=== PATIENT | male | born 1995 | race Caucasian/White ===

== ENCOUNTER 2019-07-04 08:45 | Emergency (ER) | payer BC, OTHER ==
[~2019-07-04] VITALS: Ht 177.8 cm; Wt 71.2 kg
[2019-07-04 08:53] VITALS: BP 119/58
--- NOTE | 2019-07-04 09:56 | NUR ---
assumed care of pt in rme. ct pending. given ice pack for head, provider notified of pain. +photophobia. a&ox4 gcs 15. as
[2019-07-04] MEDS ORDERED: KETOROLAC 30 MG/1 ML ONE (10:09)
[2019-07-04] MEDS ORDERED: ONDANSETRON ODT 4 MG ONE (10:09)
[2019-07-04] MEDS ORDERED: KETOROLAC 30 MG/1 ML IM ONE (10:30)
[2019-07-04] MEDS ORDERED: ONDANSETRON ODT 4 MG PO ONE (10:30)
== END 2019-07-04 11:24 | disposition home or self-care (01) ==
LOC: ED 11:03
DX: S06.0X1A Concussion with loss of consciousness of 30 minutes or less, initial encounter (principal); R11.0 Nausea; W18.39XA Other fall on same level, initial encounter; Y93.72 Activity, wrestling; Y92.098 Other place in other non-institutional residence as the place of occurrence of the external cause; Y99.8 Other external cause status
CPT/HCPCS: 70450; 96372; 99284; J1885; Q0162

== ENCOUNTER 2019-07-26 17:46 | Emergency (ER) | payer OTHER ==
[~2019-07-26] VITALS: Ht 177.8 cm; Wt 70.1 kg
[2019-07-26 18:38] LABS: RAPID INFLUENZA A Negative (Negative); RAPID INFLUENZA B Negative (Negative)
[2019-07-26 19:02] LABS: BASOPHILS # (AUTO) 0.04 x10^3/uL (0-0.1); BASOPHILS % (AUTO) 1 % (0-1); EOSINOPHILS # (AUTO) 0.12 x10^3/uL (0-0.4); EOSINOPHILS % (AUTO) 2 % (1-7); LYMPHOCYTES % (AUTO) 29 % (22-44); MD NO; MEAN CORPUSCULAR HEMOGLOBIN 30.7 pg (27.5-34.5); MEAN CORPUSCULAR HGB CONC 33.7 g/dL (33.2-36.2); MONOCYTES % (AUTO) 9 % (2-9); NEUTROPHILS # (AUTO) 4.12 x10^3/uL (1.8-6.8); NEUTROPHILS % (AUTO) 60 % (42-75); PLATELET COUNT 253 x10^3/uL (130-400); RED BLOOD COUNT 4.78 x10^6/uL (4.38-5.82); RED CELL DISTRIBUTION WIDTH 12.9 % (9.4-14.8)
[2019-07-26 19:12] LABS: ALBUMIN 4.2 g/dL (3.4-5.0); ANION GAP 6 mmol/L (5-15); CALCIUM 8.6 mg/dL (8.5-10.1); CHLORIDE 106 mmol/L (98-107); CREATININE 1.05 mg/dL (0.7-1.3)
--- NOTE | 2019-07-26 20:07 | NUR ---
PT. TO ROOM FROM LOBBY, AMBULATORY WITH STEADY GAIT AT THIS TIME.
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
[2019-07-26 20:26] VITALS: BP 122/77
--- NOTE | 2019-07-26 20:49 | NUR ---
AT BEDSIDE FOR EXAM.
--- NOTE | 2019-07-26 20:54 | NUR ---
REPORT RECEIVED FROM MARIPOSA TERRELL. ASSUMED CARE OF PT. PT RESTING ON GURNEY, NO DISTRESS NOTED, FRIEND AT BEDSIDE. AWAITING LABS AT THIS TIME. ALERT AND ORIENTED, SINUS DRE, NO ECTOPY
--- NOTE | 2019-07-26 20:56 | NUR ---
REPORT GIVEN TO MARIPOSA COATS. CARE TRANSFERRED AT THIS TIME.
--- NOTE | 2019-07-26 21:25 | NUR ---
PT GIVEN THE OPTION BY DR. GONZALEZ TO HAVE A CT SCAN, REFUSED TO HAVE ONE.
--- NOTE | 2019-07-26 21:29 | NUR ---
Patient/Caregiver given discharge instructions and they have confirmed that they understand the instructions. Patient ambulatory with steady gait.
== END 2019-07-26 22:00 | disposition home or self-care (01) ==
LOC: ED 21:45
DX: F07.81 Postconcussional syndrome (principal); R25.1 Tremor, unspecified; R51 Headache
CPT/HCPCS: 36415; 80048; 82040; 85025; 87400; 99283

== ENCOUNTER 2019-07-27 15:24 | Emergency (ER) | payer OTHER ==
[~2019-07-27] VITALS: Ht 177.8 cm; Wt 70.1 kg
[2019-07-27 15:31] VITALS: BP 113/66
--- NOTE | 2019-07-27 16:40 | NUR ---
CALLED BY RADIOLOGY, NO ANS
--- NOTE | 2019-07-27 17:54 | NUR ---
APPROXIMATELY 1700 - NO ANS 1754 - NO ANS X 3
== END 2019-07-27 17:56 | disposition left against medical advice (07) ==
LOC: ED 17:50
DX: S09.90XA Unspecified injury of head, initial encounter (principal); X58.XXXA Exposure to other specified factors, initial encounter; Y93.89 Activity, other specified; Y92.89 Other specified places as the place of occurrence of the external cause; Y99.8 Other external cause status
CPT/HCPCS: 99281

== ENCOUNTER → 2020-05-04 | Outpatient (CLI) | payer OTHER | END | disposition home or self-care (01) | LOC: RAD 17:14 | PROVIDERS: ATTEND Nurse Practitioner | DX: M47.812 Spondylosis without myelopathy or radiculopathy, cervical region (principal); M51.34 Other intervertebral disc degeneration, thoracic region; M50.33 Other cervical disc degeneration, cervicothoracic region; M25.78 Osteophyte, vertebrae | CPT/HCPCS: 72141 ==